=== PATIENT | male | born 2000 | race Caucasian/White ===

== ENCOUNTER 2018-10-20 20:11 | Emergency (ER) | payer MEDICAID ==
[~2018-10-20] VITALS: Ht 165.1 cm; Wt 63.6 kg
[2018-10-20 20:47] VITALS: Ht 165.1 cm; Wt 63.6 kg
[2018-10-20] MEDS ORDERED: KETOROLAC 30 MG INJ IV STA (23:07)
[2018-10-21] MEDS ORDERED: BISM262O23 PO (01:26)
[2018-10-21] MEDS ORDERED: AZIT500T3 PO (01:26)
[2018-10-21] MEDS ORDERED: IBUP-1542 PO (01:26)
--- NOTE | 2018-10-21 01:27 | ERD ---
ER Documentation Chief Complaint Chief Complaint RLQ abd pain sometimes left x2 days +diarrhea HPI 18-year-old male presents with a 2-day history of lower abdominal pain. His decreased appetite. Has diarrhea without blood or mucus. Pain is in the right lower quadrant as well as the left lower quadrant. ROS All systems reviewed and are negative except as per history of present illness. Medications Home Meds Active Scripts Azithromycin* (Zithromax*) 500 Mg Tablet, 500 MG PO DAILY for 3 Days, TAB Prov:BEATRICE MCMAHON MD 10/21/18 Ibuprofen* (Motrin*) 600 Mg Tab, 600 MG PO Q6, #15 TAB Prov:BEATRICE MCMAHON MD 10/21/18 Bismuth Subsalicylate* (Pepto-Bismol*) 262 Mg/15 Ml Oral.susp, 30 ML PO TID for DIARRHEA for 4 Days, ML Prov:BEATRICE MCMAHON MD 10/21/18 Allergies Allergies: Coded Allergies: No Known Allergy (Unverified , 10/20/18) PMhx/Soc Medical and Surgical Hx: pt denies Medical Hx, pt denies Surgical Hx Hx Alcohol Use: No Hx Substance Use: No Hx Tobacco Use: No Smoking Status: Never smoker FmHx Family History: No diabetes, No coronary disease, No other Physical Exam Vitals Vital Signs Date Temp Pulse Resp B/P (MAP) Pulse Ox O2 O2 Flow FiO2 Time Delivery Rate 10/20/18 98.1 67 20 167/102 98 20:47 (123) Physical Exam Const: No acute distress Head: Atraumatic Eyes: Normal Conjunctiva ENT: Normal External Ears, Nose and Mouth. Neck: Full range of motion. No meningismus. Resp: Clear to auscultation bilaterally Cardio: Regular rate and rhythm, no murmurs Abd: Soft, tender in bilateral lower quadrants right greater than left. No rebound. No Betancourt sign., non distended. Normal bowel sounds Skin: No petechiae or rashes Back: No midline or flank tenderness Ext: No cyanosis, or edema Neur: Awake and alert Psych: Normal Mood and Affect Result Diagram: 10/20/18 2330 10/20/18 2330 Results 24 hrs Laboratory Tests Test 10/20/18 23:30 White Blood Count 9.5 10^3/ul Red Blood Count 5.36 10^6/ul Hemoglobin 16.3 g/dl Hematocrit 46.0 % Mean Corpuscular Volume 85.8 fl Mean Corpuscular Hemoglobin 30.4 pg Mean Corpuscular Hemoglobin Concent 35.4 g/dl Red Cell Distribution Width 12.0 % Platelet Count 243 10^3/UL Mean Platelet Volume 9.7 fl Immature Granulocytes % 0.500 % Neutrophils % 63.3 % Lymphocytes % 25.3 % Monocytes % 8.5 % Eosinophils % 2.0 % Basophils % 0.4 % Nucleated Red Blood Cells % 0.0 /100WBC Immature Granulocytes # 0.050 10^3/ul Neutrophils # 6.0 10^3/ul Lymphocytes # 2.4 10^3/ul Monocytes # 0.8 10^3/ul Eosinophils # 0.2 10^3/ul Basophils # 0.0 10^3/ul Nucleated Red Blood Cells # 0.0 10^3/ul Urine Color STRAW Urine Clarity CLEAR Urine pH 6.0 Urine Specific Keiser 1.013 Urine Ketones NEGATIVE mg/dL Urine Nitrite NEGATIVE mg/dL Urine Bilirubin NEGATIVE mg/dL Urine Urobilinogen 1+ mg/dL Urine Leukocyte Esterase NEGATIVE Cathleen/ul Urine Hemoglobin NEGATIVE mg/dL Urine Glucose NEGATIVE mg/dL Urine Total Protein NEGATIVE mg/dl Sodium Level 143 mmol/L Potassium Level 4.0 mmol/L Chloride Level 101 mmol/L Carbon Dioxide Level 26 mmol/L Anion Gap 16 Blood Urea Nitrogen 17 mg/dl Creatinine 0.90 mg/dl Est Glomerular Filtrat Rate mL/min > 60 mL/min Glucose Level 107 mg/dl Calcium Level 9.8 mg/dl Total Bilirubin 1.1 mg/dl Direct Bilirubin 0.00 mg/dl Indirect Bilirubin 1.1 mg/dl Aspartate Amino Transf (AST/SGOT) 27 IU/L Alanine Aminotransferase (ALT/SGPT) 28 IU/L Alkaline Phosphatase 107 IU/L Total Protein 8.2 g/dl Albumin 5.4 g/dl Globulin 2.80 g/dl Albumin/Globulin Ratio 1.92 Lipase 41 U/L Current Medications Medications Dose Sig/Eleanor Start Time Status Last (Trade) Ordered Route PRN Stop Time Admin Dose Reason Admin Ketorolac 30 mg ONCE STAT 10/20/18 DC 10/20/18 Tromethamine IV 23:07 10/20/18 23:34 (Toradol) 23:09 Procedures/MDM Patient presents with 2-day history of decreased appetite lower abdominal pain. Concern is for appendicitis. CBC and CMP normal. Urine shows no acute abnormalities. CT of the pelvis showed findings consistent with enteritis with findings of appendicitis. Patient was given Toradol 30 mg IV. Patient was treated with Zithromax, Pepto-Bismol, ibuprofen, primary care follow-up and return precautions. No current signs or symptoms of surgical abdomen, aortic disease, abscess, additional emergent causes of presenting complaints. The patient was stable with no new complaints during the ER course. Clinically, there is no current evidence to suggest meningitis, sepsis, acute abdomen, pneum onia, stroke, acute coronary syndrome, pulmonary embolism, aortic dissection or any other emergent condition appearing to require further evaluation or hospitalization. Patient counseled regarding my diagnostic impression and care plan. Prior to discharge all questions answered. Pt agrees with treatment plan and understands strict return precautions. Pt is instructed to follow up with primary care provider within 24-48 hours. Precautionary instructions provided including instructions to return to the ER if not improving or for any worsening or changing symptoms or concerns. Departure Diagnosis: Primary Impression: Abdominal pain Abdominal location: lower abdomen, unspecified Qualified Codes: R10.30 - Lower abdominal pain, unspecified Condition: Stable Patient Instructions: Abdominal Pain, Diarrhea, Unk Cause (Adult) Report Pendg Referrals: NO PRIMARY,CARE PHYSICIAN (PCP) Additional Instructions: Likely gastrointestinal infection will treat for this. Recheck for fevers, blood, worsening pain, new worsening symptoms. BEATRICE MCMAHON MD Oct 21, 2018 01:27
[2018-10-21 01:40] VITALS: BP 140/90; PULSE 61; RESP 18
== END 2018-10-21 01:48 | disposition home or self-care (01) ==
LOC: FTE 20:11
DX: R10.31 Right lower quadrant pain (principal)
CPT/HCPCS: 36415; 74176; 80053; 81003; 83690; 85025; 96374; J1885; Z7502